=== PATIENT | female | born 1940 | race Caucasian/White ===

== ENCOUNTER 2016-10-21 10:08 | Day surgery (SDC) | payer MEDICARE, OTHER ==
--- NOTE | ~2016-10-21 | EGD ---
EGD REPORT [facility] [address] [address] NAME: LIZETH MONROY : [birth year] STATUS : REG [facility] [place], [place] PAT#: [id number] AGE: 76 ADM/REG DATE : 10/21/16 MR#: [id number] REPORT SERV DATE: 10/21/16 DICTATED BY: WILDA CURTIS DATE: 10/21/16 REPORT STATUS : Draft TRANSCRIBED BY: [facility] DATE: 10/21/16 Endoscopy Center Patient Name: Lizeth Monroy Date of : 1940 Attending MD: WILDA CURTIS MD Procedure Date No Time: 10/21/2016 Procedure: Colonoscopy Indications: Screening for colorectal malignant neoplasm (last colonoscopy > 10 years ago), Last colonoscopy: August 2005 Referring MD: ROMA BORJAS MD Medicines: Propofol per Anesthesia Complications: No immediate complications. Estimated blood loss: None. Procedure: Pre-Anesthesia Assessment: - After reviewing the risks and benefits, the patient was deemed in satisfactory condition to undergo the procedure. - Prior to the procedure, a History and Physical was performed, and patient medications and allergies were reviewed. The patient's tolerance of previous anesthesia was also reviewed. The risks and benefits of the procedure and the sedation options and risks were discussed with the patient. All questions were answered, and informed consent was obtained. Prior Anticoagulants: The patient has taken no previous anticoagulant or antiplatelet agents. ASA Grade Assessment: I - A normal, healthy patient. After reviewing the risks and benefits, the patient was deemed in satisfactory condition to undergo the procedure. After I obtained informed consent, the scope was passed under direct vision. Throughout the procedure, the patient's blood pressure, pulse, and oxygen saturations were monitored continuously. The CF [id number] was introduced through the anus and advanced to the cecum, identified by appendiceal orifice and ileocecal valve. The colonoscopy was somewhat difficult due to significant looping, a tortuous colon and the patient's body habitus. Successful completion of the procedure was aided by straightening and shortening the scope to obtain bowel loop reduction. The ileocecal valve and appendiceal orifice were photographed. The patient tolerated the procedure well. The quality of the bowel preparation was good. The bowel preparation used was polyethylene glycol (PEG). Scope withdrawal time was EGD REPORT [facility] [id number] [place]. [address] NAME: LIZETH MONROY : [birth year] STATUS : [facility]#: [id number] AGE: 76 ADM/REG DATE : 10/21/16 MR#: [id number] REPORT SERV DATE: 10/21/16 DICTATED BY: WILDA CURTIS DATE: 10/21/16 REPORT STATUS : Draft TRANSCRIBED BY: [employer] DATE: 10/21/16 greater than 8 minutes. Findings: The perianal and digital rectal examinations were normal. Pertinent negatives include normal sphincter tone. Non-bleeding internal hemorrhoids were found during retroflexion and were small and Grade I (internal hemorrhoids that do not prolapse). Diffuse, mild melanosis was found in the entire colon. Biopsies were taken with a cold forceps for histology. Estimated blood loss: none. Two sessile polyps were found in the sigmoid colon. The polyps were 5 to 7 mm in size. These polyps were removed with a cold snare. Resection and retrieval were complete. Estimated blood loss: none. The exam was otherwise without abnormality. Impression: - Non-bleeding internal hemorrhoids. - Minimal melanosis in the colon. Biopsied. - Two 5 to 7 mm polyps in the sigmoid colon. Resected and retrieved. - The examination was otherwise normal. Recommendation: - Discharge patient to home (ambulatory). - Return to previous diet. - Continue present medications. - Await pathology results. - Repeat colonoscopy in 5 years for surveillance. - Patient has a contact number available for emergencies. The signs and symptoms of potential delayed complications were discussed with the patient. Return to normal activities tomorrow. Written discharge instructions were provided to the patient. Procedure Code(s): --- Professional --- 33149, Colonoscopy, flexible, proximal to splenic flexure; with removal of tumor(s), polyp(s), or other lesion(s) by snare technique 29406, 59, Colonoscopy, flexible, proximal to splenic flexure; with biopsy, single or multiple Diagnosis Code(s): --- Professional --- K64.0, First degree hemorrhoids K63.89, Other specified diseases of intestine D12.5, Benign neoplasm of sigmoid colon Z12.11, Encounter for screening for malignant neoplasm of colon CPT copyright 2013 [employer]. All rights reserved. EGD REPORT [facility] [address] [address] NAME: LIZETH MONROY : [birth year] STATUS : [facility] [place], [place] PAT#: [id number] AGE: 76 ADM/REG DATE : 10/21/16 MR#: [id number] REPORT SERV DATE: 10/21/16 DICTATED BY: WILDA CURTIS. DATE: 10/21/16 REPORT STATUS : Draft TRANSCRIBED BY: [employer] DATE: 10/21/16 The codes documented in this report are preliminary and upon batching operator review may be revised to meet current compliance requirements. WILDA CURTIS MD 10/21/2016 11:22 AM This report has been signed electronically. Number of Addenda: 0 Note Initiated On: 10/21/2016 10:41 AM Scope Withdrawal Time 0 hours 8 minutes 31 seconds [address] [id number]
[~2016-10-21 10:08] MED LIST: HARD NAILS PO; VITAMIN D31000 UNIT PO
== END 2016-10-21 23:59 | disposition home or self-care (01) ==
LOC: DMU 10:08
PROVIDERS: Internal Medicine Gastroenterology
PROC: 0DBN8ZZ Excision of Sigmoid Colon, Via Natural or Artificial Opening Endoscopic (ICD-10-PCS; principal; 2016-10-21 11:45)
PROC: 0DBE8ZX Excision of Large Intestine, Via Natural or Artificial Opening Endoscopic, Diagnostic (ICD-10-PCS; 2016-10-21 11:45)
DX: Z12.11 Encounter for screening for malignant neoplasm of colon (principal); D12.5 Benign neoplasm of sigmoid colon; K63.89 Other specified diseases of intestine; K64.0 First degree hemorrhoids; M19.90 Unspecified osteoarthritis, unspecified site; Z79.899 Other long term (current) drug therapy; Z98.51 Tubal ligation status; Z98.890 Other specified postprocedural states
CPT/HCPCS: 88305; A9270-GY